=== PATIENT | male | born 1965 | race African-American/Black ===

== ENCOUNTER 2017-02-08 09:50 | Inpatient (IN) | payer MEDICARE, OTHER ==
[2017-02-02 19:49] LABS: BASOPHILS 0.3 %; BASOPHILS ABSOLUTE 0.03 10/3/uL (0.0-0.16); EOSINOPHILS 1.9 %; EOSINOPHILS ABSOLUTE 0.19 10/3/uL (0.0-0.53); HEMATOCRIT 42.5 % (40.0-51.0); HEMOGLOBIN 13.3 g/dL (13.6-17.8); IMMATURE GRANULOCYTES 0.2 %; IMMATURE GRANULOCYTES ABSOLUTE 0.02 10/3/uL (0.0-0.11); LYMPHOCYTES 24.9 %; LYMPHOCYTES ABSOLUTE 2.44 10/3/uL (0.67-4.30); MEAN CORPUS HGB CONC 31.3 g/dL (32.0-36.0); MEAN CORPUSCULAR HEMOGLOB 30.9 pg (26.0-34.0); MEAN CORPUSCULAR VOLUME 98.8 fL (80-100); MEAN PLATELET VOLUME 11.5 fL (9.2-13.0); MONOCYTES 5.8 %; MONOCYTES ABSOLUTE 0.57 10/3/uL (0.21-1.20); NEUTROPHILS 66.9 %; NEUTROPHILS ABSOLUTE 6.54 10/3/uL (2.02-8.40); PLATELET COUNT 208 10/3/uL (150-400); RBC DISTRIBUTION WIDTH 13.8 % (12.0-16.0); WHITE BLOOD CELLS 9.8 10/3/uL (4.5-10.5)
[2017-02-02 19:55] LABS: MANUAL DIFF NO %
[2017-02-02 20:07] LABS: BUN (BLOOD UREA NITROGEN) 16 MG/DL (6-23); CALCIUM, SERUM 9.6 MG/DL (8.5-10.4); CHLORIDE, SERUM 103 MMOL/L (96-112); CO2 (CARBON DIOXIDE) 33 MMOL/L (24-34); CREATININE 1.06 MG/DL (0.70-1.30); GFR AFRICAN AMERICAN 93 ML/MIN (>=60); GFR NON AFRICAN AMERICAN 80 ML/MIN (>=60); GLUCOSE, SERUM 90 MG/DL (60-99); POTASSIUM, SERUM 4.6 MMOL/L (3.5-5.3); SODIUM, SERUM 141 MMOL/L (135-148)
[~2017-02-08] VITALS: Ht 165.1 cm; Wt 75.3 kg
--- NOTE | ~2017-02-08 | OP ---
Record Of Operation [facility] [address] [place]. [address] NAME: BLAYNE SCOTT : 63 STATUS : ADM IN [facility]#: [id number] AGE: 51 ADM/REG DATE : 02/08/17 MR#: [id number] REPORT SERV DATE: 02/08/17 DICTATED BY: SANTY TA DATE: 02/08/17 REPORT STATUS : Draft TRANSCRIBED BY: MODL DATE: 02/08/17 DATE OF PROCEDURE: 02/08/2017 PREOPERATIVE DIAGNOSIS: Cecal adenocarcinoma. POSTOPERATIVE DIAGNOSIS: Cecal adenocarcinoma. PROCEDURE: Laparoscopic, right hemicolectomy. RESIDENT SURGEON: Will Abernathy MD ANESTHESIA: General and TAP blocks. COMPLICATIONS: None. BLOOD LOSS: 10 mL. SPECIMENS: Right colon. IV FLUIDS: 1000 mL of crystalloid. URINE OUTPUT: 700 mL. INDICATION FOR PROCEDURE: Blayne Scott is a 51-year-old man with cerebral palsy, who presented with cecal adenocarcinoma. He had undergone surveillance colonoscopy. He was found to have a 20 mm polyp in the cecum, biopsy proven to be adenocarcinoma. The risks and benefits of laparoscopic right colectomy including bleeding; infection; anastomotic leak; injury to bowel, bladder, or ureter; risks of anesthesia; heart attack; stroke; DVT/PE; as well as postop incisional hernias were discussed with the patient's family, mother and father. They understood and wished to proceed. DESCRIPTION OF PROCEDURE: After informed consent was obtained, patient was taken to the operating room and placed on the operating table in supine position. General endotracheal anesthesia was induced by Anesthesia staff without incident. Time-out was performed verifying the correct patient, position, procedure, equipment, and dosage of preoperative antibiotics. The patient was secured to the table with straps and tape and all bony prominences were appropriately padded. Positioning was tested and patient did not move on the table during positioning. The abdomen was then prepped and draped in sterile fashion. I elevated the skin around the umbilicus with skin hooks. The base of the umbilicus was incised with a knife. The peritoneum was entered bluntly. A 5 mm trocar was advanced and the abdomen was insufflated without incident. Laparoscope was inserted showed no evidence of injury secondary to trocar placement. The abdomen was explored. There was some adhesions in the right lateral abdominal wall as well as the left lateral abdominal wall to the omentum. A 10 mm trocar was placed in the midline, 5 mm trocar in left upper quadrant. The adhesions were lysed with scissors. Additional 5 mm trocars placed in the left abdomen. The patient was then placed in Trendelenburg with left side down positioning. The cecum was Record Of Operation [place] [id number] [facility] [place]. [address] NAME: BLAYNE SCOTT : 63 STATUS : ADM IN PAT#: [id number] AGE: 51 ADM/REG DATE : 02/08/17 MR#: [id number] REPORT SERV DATE: 02/08/17 DICTATED BY: SANTY TA DATE: 02/08/17 REPORT STATUS : Draft TRANSCRIBED BY: DORIE DATE: 02/08/17 mobilized off the lateral abdominal wall using scissors and cautery. The terminal ileum was identified, the ileocecal valve identified, and the right colon was mobilized towards the hepatic flexure until the duodenum was identified. The duodenum was protected throughout the dissection. At this time, the patient was placed in reverse Trendelenburg, and the hepatic flexure was taken down using scissors and electrocautery. Next, the ileocolic pedicle was identified. A window was created at the base of the ileocolic pedicle. The artery was then secured with two clips on the stay side and a single clip on the specimen side. This was then cut with scissors. There was good hemostasis and secured with locking of the clips on the ileocolic artery. With the right colon and the terminal ileum fully mobilized, the cecum was then grasped with a bowel grasper, the insufflation was turned off, and the midline incision inside of the 10 mm trocar was then enlarged with electrocautery. A wound protector was placed in the midline incision and the right colon was brought out through the incision. The mass was palpable in the cecum, resection point 10 cm from the mass on the colon and 10 cm from the mass on the ilium were identified. A window was created in the mesentery at the colon resection site and the colon was then divided with a TAMEKA 75 blue load stapler. The mesentery was then divided between clamps and tied with 2-0 Vicryl ties. A Laure was placed across the small bowel on the specimen side of the resection point. The colon and small bowel were then aligned. Enterotomies were made in the small bowel as well as the colon along the line of the tenia and a [id number] anastomosis was then created with a TAMEKA 75 blue load stapler. The common enterotomy was closed with a TX 90 stapler. The junctions of the staple line had been offset and these were then imbricated using 3-0 silk suture. Hemostasis along the staple line was assured with electrocautery. There was good hemostasis. A crotch stitch of 3-0 silk was placed at the anastomosis and the anastomosis was patent and the area was irrigated and then allowed to fall back into the abdomen. Gloves and instruments were changed. The anastomosis was visible within the abdomen and looked appropriately placed with good hemostasis. The midline fascia was then closed with a running #1 PDS suture. The skin at the extraction site was then closed with a single 3-0 Vicryl suture. The port site skin was closed with 3- 0 Vicryl. Band-Aids were placed on the port sites. The midline extraction site was packed with gauze and sterile dressing placed. The patient tolerated the procedure and was taken to postanesthesia care in satisfactory condition. DICTATED BY: MD ALIS Aburto/DORIE Piedad Ta M.D. / [id number] CC: Piedad Ta M.D.
[~2017-02-08 09:50] MED LIST: BISR PR; CLARINEX5 MG PO; CLARIT10 PO; CLARITIN5 MG PO; DITRO5 PO; MIRALAX POWDER1 PKT PO; MIRALAXPKT PO; OS500+D PO; PATADAY OPH; REM15 PO; REMERON45 MG PO; TRAZ100 PO; TRAZ50 PO; TRAZODONE150 MG PO
[2017-02-09 05:18] LABS: BASOPHILS 0.1 %; BASOPHILS ABSOLUTE 0.01 10/3/uL (0.0-0.16); EOSINOPHILS 0 %; HEMATOCRIT 38.1 % (40.0-51.0); HEMOGLOBIN 12.6 g/dL (13.6-17.8); IMMATURE GRANULOCYTES 0.3 %; IMMATURE GRANULOCYTES ABSOLUTE 0.04 10/3/uL (0.0-0.11); LYMPHOCYTES 14.2 %; LYMPHOCYTES ABSOLUTE 1.85 10/3/uL (0.67-4.30); MANUAL DIFF NO %; MEAN CORPUS HGB CONC 33.1 g/dL (32.0-36.0); MEAN CORPUSCULAR HEMOGLOB 31.3 pg (26.0-34.0); MEAN CORPUSCULAR VOLUME 94.8 fL (80-100); MEAN PLATELET VOLUME 11.1 fL (9.2-13.0); MONOCYTES 6.5 %; MONOCYTES ABSOLUTE 0.85 10/3/uL (0.21-1.20); NEUTROPHILS 78.9 %; NEUTROPHILS ABSOLUTE 10.25 10/3/uL (2.02-8.40); PLATELET COUNT 179 10/3/uL (150-400); RBC DISTRIBUTION WIDTH 13.6 % (12.0-16.0); RED CELL COUNT 4.02 10/6/uL (4.7-6.1)
[2017-02-09 05:30] LABS: BUN (BLOOD UREA NITROGEN) 14 MG/DL (6-23); CALCIUM, SERUM 8.8 MG/DL (8.5-10.4); CHLORIDE, SERUM 102 MMOL/L (96-112); CREATININE 1.35 MG/DL (0.70-1.30); GFR AFRICAN AMERICAN 69 ML/MIN (>=60); GFR NON AFRICAN AMERICAN 60 ML/MIN (>=60); SODIUM, SERUM 137 MMOL/L (135-148)
[2017-02-09 05:31] LABS: CO2 (CARBON DIOXIDE) 28 MMOL/L (24-34); GLUCOSE, SERUM 140 MG/DL (60-99)
[2017-02-10 06:47] LABS: BASOPHILS 0.1 %; BASOPHILS ABSOLUTE 0.01 10/3/uL (0.0-0.16); EOSINOPHILS 0.1 %; EOSINOPHILS ABSOLUTE 0.01 10/3/uL (0.0-0.53); HEMATOCRIT 40.5 % (40.0-51.0); HEMOGLOBIN 13.5 g/dL (13.6-17.8); IMMATURE GRANULOCYTES 0.2 %; IMMATURE GRANULOCYTES ABSOLUTE 0.04 10/3/uL (0.0-0.11); LYMPHOCYTES 8.7 %; LYMPHOCYTES ABSOLUTE 1.44 10/3/uL (0.67-4.30); MEAN CORPUS HGB CONC 33.3 g/dL (32.0-36.0); MEAN CORPUSCULAR HEMOGLOB 31.3 pg (26.0-34.0); MEAN PLATELET VOLUME 11.1 fL (9.2-13.0); MONOCYTES 4.8 %; NEUTROPHILS 86.1 %; NEUTROPHILS ABSOLUTE 14.23 10/3/uL (2.02-8.40); PLATELET COUNT 197 10/3/uL (150-400); RBC DISTRIBUTION WIDTH 13.8 % (12.0-16.0); RED CELL COUNT 4.31 10/6/uL (4.7-6.1); WHITE BLOOD CELLS 16.5 10/3/uL (4.5-10.5)
[2017-02-10 06:48] LABS: MANUAL DIFF NO %
[2017-02-10 06:57] LABS: CHLORIDE, SERUM 101 MMOL/L (96-112); CO2 (CARBON DIOXIDE) 28 MMOL/L (24-34); CREATININE 1.53 MG/DL (0.70-1.30); GFR AFRICAN AMERICAN 60 ML/MIN (>=60); GFR NON AFRICAN AMERICAN 52 ML/MIN (>=60); GLUCOSE, SERUM 152 MG/DL (60-99); SODIUM, SERUM 136 MMOL/L (135-148)
[2017-02-10 06:59] LABS: BUN (BLOOD UREA NITROGEN) 28 MG/DL (6-23); CALCIUM, SERUM 10.5 MG/DL (8.5-10.4); POTASSIUM, SERUM 4.9 MMOL/L (3.5-5.3)
[2017-02-11 05:34] LABS: BASOPHILS 0.1 %; BASOPHILS ABSOLUTE 0.01 10/3/uL (0.0-0.16); EOSINOPHILS 1.4 %; EOSINOPHILS ABSOLUTE 0.17 10/3/uL (0.0-0.53); IMMATURE GRANULOCYTES 0.3 %; IMMATURE GRANULOCYTES ABSOLUTE 0.03 10/3/uL (0.0-0.11); LYMPHOCYTES 12.3 %; LYMPHOCYTES ABSOLUTE 1.47 10/3/uL (0.67-4.30); MEAN CORPUS HGB CONC 32.3 g/dL (32.0-36.0); MEAN CORPUSCULAR HEMOGLOB 31.5 pg (26.0-34.0); MEAN PLATELET VOLUME 11.2 fL (9.2-13.0); MONOCYTES 10.2 %; MONOCYTES ABSOLUTE 1.22 10/3/uL (0.21-1.20); NEUTROPHILS 75.7 %; NEUTROPHILS ABSOLUTE 9.02 10/3/uL (2.02-8.40); PLATELET COUNT 164 10/3/uL (150-400); WHITE BLOOD CELLS 11.9 10/3/uL (4.5-10.5)
[2017-02-11 05:39] LABS: HEMATOCRIT 32.8 % (40.0-51.0); HEMOGLOBIN 10.6 g/dL (13.6-17.8); MANUAL DIFF NO %; MEAN CORPUSCULAR VOLUME 97.3 fL (80-100); RED CELL COUNT 3.37 10/6/uL (4.7-6.1)
[2017-02-11 05:46] LABS: CHLORIDE, SERUM 109 MMOL/L (96-112); CO2 (CARBON DIOXIDE) 30 MMOL/L (24-34); POTASSIUM, SERUM 4.2 MMOL/L (3.5-5.3)
[2017-02-11 05:50] LABS: BUN (BLOOD UREA NITROGEN) 22 MG/DL (6-23); CALCIUM, SERUM 8.6 MG/DL (8.5-10.4); GFR AFRICAN AMERICAN 100 ML/MIN (>=60); GFR NON AFRICAN AMERICAN 86 ML/MIN (>=60); GLUCOSE, SERUM 93 MG/DL (60-99); SODIUM, SERUM 143 MMOL/L (135-148)
[2017-02-12 06:33] LABS: BASOPHILS 0.1 %; BASOPHILS ABSOLUTE 0.01 10/3/uL (0.0-0.16); EOSINOPHILS 3.9 %; EOSINOPHILS ABSOLUTE 0.41 10/3/uL (0.0-0.53); HEMATOCRIT 30.6 % (40.0-51.0); HEMOGLOBIN 9.9 g/dL (13.6-17.8); IMMATURE GRANULOCYTES 0.2 %; IMMATURE GRANULOCYTES ABSOLUTE 0.02 10/3/uL (0.0-0.11); LYMPHOCYTES 15.5 %; LYMPHOCYTES ABSOLUTE 1.64 10/3/uL (0.67-4.30); MANUAL DIFF NO %; MEAN CORPUS HGB CONC 32.4 g/dL (32.0-36.0); MEAN CORPUSCULAR HEMOGLOB 31.7 pg (26.0-34.0); MEAN CORPUSCULAR VOLUME 98.1 fL (80-100); MEAN PLATELET VOLUME 10.8 fL (9.2-13.0); MONOCYTES 8.4 %; MONOCYTES ABSOLUTE 0.89 10/3/uL (0.21-1.20); NEUTROPHILS 71.9 %; NEUTROPHILS ABSOLUTE 7.64 10/3/uL (2.02-8.40); PLATELET COUNT 184 10/3/uL (150-400); RBC DISTRIBUTION WIDTH 14.3 % (12.0-16.0); RED CELL COUNT 3.12 10/6/uL (4.7-6.1); WHITE BLOOD CELLS 10.6 10/3/uL (4.5-10.5)
[2017-02-12 06:45] LABS: BUN (BLOOD UREA NITROGEN) 24 MG/DL (6-23); CALCIUM, SERUM 8.5 MG/DL (8.5-10.4); CHLORIDE, SERUM 109 MMOL/L (96-112); CO2 (CARBON DIOXIDE) 31 MMOL/L (24-34); CREATININE 0.94 MG/DL (0.70-1.30); GFR AFRICAN AMERICAN 108 ML/MIN (>=60); GFR NON AFRICAN AMERICAN 93 ML/MIN (>=60); GLUCOSE, SERUM 81 MG/DL (60-99); SODIUM, SERUM 147 MMOL/L (135-148)
[2017-02-13 06:39] LABS: BASOPHILS 0.3 %; BASOPHILS ABSOLUTE 0.03 10/3/uL (0.0-0.16); EOSINOPHILS ABSOLUTE 0.38 10/3/uL (0.0-0.53); HEMOGLOBIN 8.9 g/dL (13.6-17.8); IMMATURE GRANULOCYTES 0.2 %; IMMATURE GRANULOCYTES ABSOLUTE 0.02 10/3/uL (0.0-0.11); LYMPHOCYTES 19.2 %; LYMPHOCYTES ABSOLUTE 1.81 10/3/uL (0.67-4.30); MANUAL DIFF NO %; MEAN CORPUS HGB CONC 31.8 g/dL (32.0-36.0); MEAN CORPUSCULAR HEMOGLOB 31.1 pg (26.0-34.0); MEAN CORPUSCULAR VOLUME 97.9 fL (80-100); MONOCYTES 8.6 %; MONOCYTES ABSOLUTE 0.81 10/3/uL (0.21-1.20); NEUTROPHILS 67.7 %; NEUTROPHILS ABSOLUTE 6.37 10/3/uL (2.02-8.40); PLATELET COUNT 188 10/3/uL (150-400); RBC DISTRIBUTION WIDTH 14.1 % (12.0-16.0); RED CELL COUNT 2.86 10/6/uL (4.7-6.1); WHITE BLOOD CELLS 9.4 10/3/uL (4.5-10.5)
[2017-02-13 06:50] LABS: BUN (BLOOD UREA NITROGEN) 23 MG/DL (6-23); CALCIUM, SERUM 8.4 MG/DL (8.5-10.4); CHLORIDE, SERUM 109 MMOL/L (96-112); CO2 (CARBON DIOXIDE) 31 MMOL/L (24-34); GFR AFRICAN AMERICAN 119 ML/MIN (>=60); GFR NON AFRICAN AMERICAN 103 ML/MIN (>=60); GLUCOSE, SERUM 74 MG/DL (60-99); POTASSIUM, SERUM 3.7 MMOL/L (3.5-5.3); SODIUM, SERUM 145 MMOL/L (135-148)
[2017-02-14 11:34] LABS: BASOPHILS 0.2 %; BASOPHILS ABSOLUTE 0.02 10/3/uL (0.0-0.16); EOSINOPHILS 1.6 %; EOSINOPHILS ABSOLUTE 0.15 10/3/uL (0.0-0.53); HEMATOCRIT 27.6 % (40.0-51.0); HEMOGLOBIN 8.7 g/dL (13.6-17.8); IMMATURE GRANULOCYTES 1.1 %; LYMPHOCYTES 17.7 %; LYMPHOCYTES ABSOLUTE 1.63 10/3/uL (0.67-4.30); MANUAL DIFF NO %; MEAN CORPUS HGB CONC 31.5 g/dL (32.0-36.0); MEAN CORPUSCULAR HEMOGLOB 31.4 pg (26.0-34.0); MEAN CORPUSCULAR VOLUME 99.6 fL (80-100); MEAN PLATELET VOLUME 10.2 fL (9.2-13.0); MONOCYTES 7.4 %; MONOCYTES ABSOLUTE 0.68 10/3/uL (0.21-1.20); NEUTROPHILS ABSOLUTE 6.62 10/3/uL (2.02-8.40); PLATELET COUNT 218 10/3/uL (150-400); RBC DISTRIBUTION WIDTH 13.8 % (12.0-16.0); RED CELL COUNT 2.77 10/6/uL (4.7-6.1); WHITE BLOOD CELLS 9.2 10/3/uL (4.5-10.5)
[2017-02-14 11:49] LABS: BUN (BLOOD UREA NITROGEN) 22 MG/DL (6-23); CALCIUM, SERUM 8.7 MG/DL (8.5-10.4); CHLORIDE, SERUM 108 MMOL/L (96-112); CO2 (CARBON DIOXIDE) 27 MMOL/L (24-34); CREATININE 0.64 MG/DL (0.70-1.30); GFR AFRICAN AMERICAN 130 ML/MIN (>=60); GFR NON AFRICAN AMERICAN 113 ML/MIN (>=60); GLUCOSE, SERUM 71 MG/DL (60-99); PHOSPHORUS, SERUM 2.8 MG/DL (2.5-4.5); POTASSIUM, SERUM 3.6 MMOL/L (3.5-5.3); SODIUM, SERUM 144 MMOL/L (135-148)
[2017-02-15 05:54] LABS: BASOPHILS 0.2 %; BASOPHILS ABSOLUTE 0.02 10/3/uL (0.0-0.16); EOSINOPHILS 2.3 %; EOSINOPHILS ABSOLUTE 0.24 10/3/uL (0.0-0.53); HEMATOCRIT 28.2 % (40.0-51.0); HEMOGLOBIN 8.9 g/dL (13.6-17.8); IMMATURE GRANULOCYTES 1.1 %; IMMATURE GRANULOCYTES ABSOLUTE 0.11 10/3/uL (0.0-0.11); LYMPHOCYTES 20.6 %; LYMPHOCYTES ABSOLUTE 2.12 10/3/uL (0.67-4.30); MEAN CORPUS HGB CONC 31.6 g/dL (32.0-36.0); MEAN CORPUSCULAR HEMOGLOB 31.1 pg (26.0-34.0); MEAN CORPUSCULAR VOLUME 98.6 fL (80-100); MEAN PLATELET VOLUME 9.7 fL (9.2-13.0); MONOCYTES 8.8 %; NEUTROPHILS ABSOLUTE 6.89 10/3/uL (2.02-8.40); PLATELET COUNT 244 10/3/uL (150-400); RBC DISTRIBUTION WIDTH 13.7 % (12.0-16.0); RED CELL COUNT 2.86 10/6/uL (4.7-6.1); WHITE BLOOD CELLS 10.3 10/3/uL (4.5-10.5)
[2017-02-15 05:56] LABS: MANUAL DIFF NO %
[2017-02-15 05:59] LABS: BUN (BLOOD UREA NITROGEN) 20 MG/DL (6-23); CALCIUM, SERUM 8.5 MG/DL (8.5-10.4); CHLORIDE, SERUM 109 MMOL/L (96-112); CO2 (CARBON DIOXIDE) 29 MMOL/L (24-34); CREATININE 0.73 MG/DL (0.70-1.30); GFR AFRICAN AMERICAN 124 ML/MIN (>=60); GFR NON AFRICAN AMERICAN 107 ML/MIN (>=60); GLUCOSE, SERUM 79 MG/DL (60-99); POTASSIUM, SERUM 3.9 MMOL/L (3.5-5.3); SODIUM, SERUM 147 MMOL/L (135-148)
== END 2017-02-16 15:48 | disposition home or self-care (01) | DRG 330 ==
LOC: ENRESERV → ENRESERVDT → ENRESERVTM → 5SO 09:50 → SDC/OF 09:50 → PACU 15:05 → 5SO 17:32
PROVIDERS: Colon & Rectal Surgery
PROC: 0DTF4ZZ Resection of Right Large Intestine, Percutaneous Endoscopic Approach (ICD-10-PCS; principal; 2017-02-08 11:45)
DX: C18.0 Malignant neoplasm of cecum (principal); J95.89 Other postprocedural complications and disorders of respiratory system, not elsewhere classified; K56.7 Ileus, unspecified; J98.11 Atelectasis; G80.9 Cerebral palsy, unspecified; Z82.49 Family history of ischemic heart disease and other diseases of the circulatory system; Z80.0 Family history of malignant neoplasm of digestive organs; Z80.3 Family history of malignant neoplasm of breast; Z80.8 Family history of malignant neoplasm of other organs or systems
CPT/HCPCS: 36415; 71010; 74000; 74020; 80048; 82378; 83735; 84100; 85025; 85347; 87040; 88309; 88341; 88342; 93005; 97162-GP; A9270-GY; G8978-CJ-GP; G8979-CJ-GP; G8980-CJ-GP; J0690; J1885; J2250; J2270; J2405; J2543; J2550; J2710; J2795; J3010